=== PATIENT | male | born 1960 | race Caucasian/White ===

== ENCOUNTER → 2017-03-26 | Outpatient (CLI) | payer BC ==
[2017-03-26 17:15] LABS: ALBUMIN 3.9 GM/DL (3.2-5.2); ALBUMIN/GLOBULIN RATIO 1.26 (1.00-1.93); ALKALINE PHOSPHATASE 74 U/L (45-117); ALT/SGPT 35 U/L (12-78); AST/SGOT 16 U/L (15-37); BILIRUBIN,DIRECT 0.2 MG/DL (0.0-0.2); BLOOD UREA NITROGEN 19 MG/DL (7-18); CREATININE FOR GFR 1.19 MG/DL (0.70-1.30); GLOMERULAR FILTRATION RATE > 60.0 (>56)
[2017-03-26 19:05] LABS: BASO # 0.1 K/mm3 (0.0-0.2); BASO % 0.9 % (0.0-1.0); EOS # 0.2 K/mm3 (0.0-0.50); EOS % 2.2 % (0.0-3.0); LARGE UNSTAINED CELL # 0.1 K/mm3 (0.0-0.4); LARGE UNSTAINED CELL % 1.1 % (0.0-4.0); LYMPH # 1.9 K/mm3 (1.5-4.5); LYMPH % 24.3 % (24.0-44.0); MEAN CORPUSCULAR HEMOGLOBIN 30.5 pg (27.0-33.0); MEAN CORPUSCULAR HGB CONC 33.2 g/dl (32.0-36.5); MEAN CORPUSCULAR VOLUME 91.6 fl (80.0-96.0); MONO # 0.5 K/mm3 (0.0-0.8); MONO % 6.2 % (0.0-5.0); NEUTROPHILS # 4.8 K/mm3 (1.8-7.7); NEUTROPHILS % 65.4 % (36.0-66.0); PLATELET COUNT, AUTOMATED 293 k/mm3 (150-450); RED CELL DISTRIBUTION WIDTH 13.5 % (11.5-14.5); WHITE BLOOD COUNT 7.4 K/mm3 (4.0-10.0)
== END ==
LOC: M WUC 15:03
PROVIDERS: ATTEND Dermatology
DX: L40.0 Psoriasis vulgaris (principal); Z79.899 Other long term (current) drug therapy

== ENCOUNTER → 2021-12-19 | Outpatient (CLI) | payer BC | LOC: M RAD 11:12 → M LAB 11:12 | PROVIDERS: ATTEND Nurse Practitioner Family | DX: L40.0 Psoriasis vulgaris (principal) ==

== ENCOUNTER → 2023-08-07 | Outpatient (CLI) | payer BC | LOC: M RAD 09:57 | PROVIDERS: ATTEND Nurse Practitioner Family | DX: L40.0 Psoriasis vulgaris (principal) ==

== ENCOUNTER 2025-02-04 09:02 | Emergency (ER) | payer BC, OTHER ==
[~2025-02-04] VITALS: Ht 180.3 cm; Wt 108.0 kg
[2025-02-04 09:09] VITALS: BP 236/150
[2025-02-04] MEDS: NITROGLYCERIN 0.4 MG SUBL TABLET SL STA (09:09)
[2025-02-04] MEDS ORDERED: NITROGLYCERIN 0.4 MG SUBL TABLET As Ordered ONE (09:10)
[2025-02-04] MEDS ORDERED: NITROGLYCERIN IN D5W 25 MG/250 ML (100 MCG/ML) As Ordered ONE (09:10)
[2025-02-04] MEDS: NITROGLYCERIN/D5W 100MCG/ML 250 ML IV SCH (09:20)
[2025-02-04] MEDS: ONDANSETRON 4MG 2ML VIAL IV ONE (09:23)
[2025-02-04] MEDS: MORPHINE 2 MG/ML 1 ML VIAL IV PRN (09:23)
[2025-02-04] MEDS: IPRATROPIUM 0.5 MG/ALBUTEROL 2.5 MG INH SOL UD 3 ML NEB ONE (09:27)
[2025-02-04 09:28] LABS: ABG BASE EXCESS -12.1 (-2.0-2.0); ABG HCO3 16.2 MMOL/L (22.0-26.0); ABG O2 SATURATION 92.9 % (95.0-99.0); ABG PARTIAL PRESSURE CO2 44.8 mmHg (35.0-45.0); ABG PARTIAL PRESSURE O2 79.9 mmHg (75.0-100.0); ABG STANDARD HCO3 15.4 MMOL/L. (22.0-26.0); ABG TOTAL CO2 17.5 MMOL/L (23.0-31.0)
[2025-02-04] MEDS: ALBUTEROL SULFATE 2.5 MG/0.5 ML INH CONCENTRATE NEB SOLN INH ONE (09:28)
[2025-02-04 09:29] LABS: ABG pH (ARTERIAL) 7.175 UNITS (7.350-7.450)
[2025-02-04 09:34] LABS: BASO # 0.1 10^3/uL (0.0-0.2); BASO % 0.9 % (0.0-1.0); EOS # 0.2 10^3/uL (0.0-0.5); EOS % 1.1 % (0.0-3.0); LYMPH # 4.1 10^3/uL (1.5-5.0); LYMPH % 28.0 % (24.0-44.0); MONO # 0.9 10^3/uL (0.0-0.8); MONO % 6.3 % (2.0-8.0); NEUTROPHILS # 9.3 10^3/uL (1.5-8.5); NEUTROPHILS % 63.1 % (36.0-66.0); PLATELET COUNT, AUTOMATED 324 10^3/uL (150-450)
[2025-02-04 09:59] LABS: CK-MB VALUE MASS 4.3 NG/ML (<3.6)
[2025-02-04] MEDS: FUROSEMIDE 20 MG/2 ML VIAL IV ONE (09:59)
[2025-02-04] MEDS: ASPIRIN 81 MG CHEWABLE TABLET PO ONE (10:00)
[2025-02-04 10:02] LABS: ALT/SGPT 35.0 U/L (7.0-40); AST/SGOT 40.0 U/L (<34); CALCIUM LEVEL 9.1 MG/DL (8.3-10.6); CARBON DIOXIDE LEVEL 22.0 MMOL/L (20-31); CHLORIDE LEVEL 107.0 MMOL/L (98-107); CREATININE FOR GFR 1.56 MG/DL (0.70-1.30); GLOMERULAR FILTRATION RATE 49.6 (>49); POTASSIUM SERUM 3.9 MMOL/L (3.5-5.1); SODIUM LEVEL 147.0 MMOL/L (136-145)
[2025-02-04 10:03] LABS: THYROXINE (T4) 5.2 UG/DL (4.5-10.9)
[2025-02-04 10:09] LABS: CPK CREATINE PHOSPHOKINASE 133.0 U/L (46-171); MB/CK RELATIVE INDEX 3.23 (< OR =4)
[2025-02-04] MEDS: PIPERACILLIN/TAZOBACTAM SOD 4.5 GM in DEXTROSE 5% (D5W) ADV/MINI-BAG 50 ML IV ONE (10:33)
[2025-02-04 10:49] LABS: CK-MB VALUE MASS 4.9 NG/ML (<3.6)
[2025-02-04 10:59] LABS: ABG BASE EXCESS -7.8 (-2.0-2.0); ABG HCO3 17.1 MMOL/L (22.0-26.0); ABG O2 SATURATION 96.3 % (95.0-99.0); ABG PARTIAL PRESSURE CO2 33.8 mmHg (35.0-45.0); ABG PARTIAL PRESSURE O2 88.4 mmHg (75.0-100.0); ABG STANDARD HCO3 18.3 MMOL/L. (22.0-26.0); ABG TOTAL CO2 18.1 MMOL/L (23.0-31.0); ABG pH (ARTERIAL) 7.322 UNITS (7.350-7.450)
[2025-02-04 10:59] LABS: CPK CREATINE PHOSPHOKINASE 104.0 U/L (46-171); MB/CK RELATIVE INDEX 4.71 (< OR =4)
[2025-02-04] MEDS ORDERED: OMEP-173 PO (11:36)
[2025-02-04] MEDS ORDERED: STEL90IN SC (11:36)
[2025-02-04] MEDS ORDERED: HOME MED LIST COMPLETE! XX SCH (11:40)
[2025-02-04 12:57] LABS: CK-MB VALUE MASS 6.3 NG/ML (<3.6)
[2025-02-04 13:02] LABS: CPK CREATINE PHOSPHOKINASE 109.0 U/L (46-171); MB/CK RELATIVE INDEX 5.77 (< OR =4)
[2025-02-04] MEDS: HEPARIN SOD 5000 UNITS/ML 1 ML VIAL/SYRINGE IV ONE (13:32)
[2025-02-04] MEDS: HEPARIN DRIP 25,000 UNITS in IV 1 EA IV SCH (13:33)
[2025-02-04] MEDS: FUROSEMIDE 40 MG/4 ML VIAL IV ONE (13:41)
[2025-02-04 15:00] VITALS: BP 153/83; TEMP 97.2; O2SAT 95
== END 2025-02-04 15:12 | disposition short-term general hospital (02) ==
LOC: EDBD 09:02 → M ED 09:02
DX: I21.4 Non-ST elevation (NSTEMI) myocardial infarction (principal); I16.1 Hypertensive emergency; J81.0 Acute pulmonary edema; E78.00 Pure hypercholesterolemia, unspecified; F12.10 Cannabis abuse, uncomplicated; F10.10 Alcohol abuse, uncomplicated; Z87.891 Personal history of nicotine dependence
CPT/HCPCS: 36600; 71045; 80047; 80048; 80076; 82550; 82553; 82803; 83605; 83880; 84145; 84436; 84443; 84484; 85025; 85730; 87040; 87486; 87581; 87633; 87798; 93005; 93041; 94640; 94660; 94760; 96365; 96366; 96375; 96376; 99291; 99292; J1938; J2305; J2405; J2543